=== PATIENT | male | born 1960 | race Caucasian/White ===

== ENCOUNTER → 2017-09-08 | Outpatient (CLI) | payer OTHER ==
--- NOTE | 2017-09-08 08:56 | NUR ---
ARRIVED AMBULATORY. MADE SELF COMFORTABLE IN RECLINER. PICC LINE NOTED TO RIGHT UPPER ARM. DRESSING NOT COVERING STATLOCK, DRESSING HAD PEELED BACK TO EXPOSE INSERTION SITE. PT HAD USED MEDICAL TAPE AND RECOVERD INSERTION SITE WITH TEGADERM THAT HAD PEELED BACK AND TAPED IT ON 3 SIDES. DRESSING WAS REMOVED. PICC NOTED TO BE 4CM EXTERNAL. NO SIGN OF INFECTION NOTED. AREA CLEANED AND NEW DRESSING APPLIED PER HOSPITAL POLICY. PT EDUCATION ON PICC LINE CARE COMPLETED. DENIES QUESTIONS OR NEEDS AT DISCHARGE.
== END ==
LOC: M.INFUS 07:45
DX: M71.022 Abscess of bursa, left elbow (principal)

== ENCOUNTER → 2017-09-10 | Outpatient (CLI) | payer OTHER ==
[2017-09-10 08:21] LABS: ABSOLUTE EOSINOPHILS 0.1 thou/uL (0.0-0.7); ABSOLUTE LYMPHOCYTES 0.9 thou/uL (0.8-5.3); ABSOLUTE MONOCYTES 0.5 thou/uL (0.0-1.2); ABSOLUTE NEUTROPHILS 1.2 thou/uL (1.6-8.1); BASOPHILS 1.3 %; EOSINOPHILS 4.6 %; HEMATOCRIT 43.3 % (42.0-52.0); HEMOGLOBIN 14.9 gm/dL (14.0-18.0); LYMPHOCYTES 30.7 %; MCH 29.9 pg (26.0-34.0); MCHC 34.4 g/dL (28.0-37.0); MCV 86.9 fL (80.0-100.0); MPV 7.9 fl. (7.2-11.1); NUCLEATED RBCS 0 /100WBC; PLATELET COUNT* 229 thou/uL (150-400); POLYS 44.4 %; RBC 4.98 mil/uL (4.50-6.00); RDW-CV 13.6 % (10.5-14.5); WBC 2.8 thou/uL (4.0-11.0)
[2017-09-10 08:35] LABS: ALBUMIN 3.5 g/dL (3.4-5.0); CALCIUM 8.9 mg/dL (8.5-10.1); CREATININE 0.9 mg/dL (0.6-1.3); POTASSIUM 4.3 mmol/L (3.5-5.1); TOTAL BILIRUBIN 0.8 mg/dL (<0.1-1.0); TOTAL PROTEIN 6.8 g/dL (6.4-8.2)
--- NOTE | 2017-09-10 08:40 | NUR ---
ARRIVED AMBULATORY. DRESSING PEELING UP AT TOP CORNER. PICC DRESSING CHANGED. PICC PATNET WITH GOOD BLOOD RETURN AND EASY FLUSH. WEEKLY LABS DRAWN PER ORDER. LINE FLUSHED. DENEIS NEEDS OR QUESTIONS AT DISCHARGE.
[2017-09-10 10:08] LABS: ESR (SEDRATE) 0 mm/hr (0-20)
== END ==
LOC: M.INFUS 01:13
DX: M71.022 Abscess of bursa, left elbow (principal)

== ENCOUNTER → 2017-09-17 | Outpatient (CLI) | payer OTHER ==
[2017-09-17 08:31] LABS: ABSOLUTE EOSINOPHILS 0.1 thou/uL (0.0-0.7); ABSOLUTE LYMPHOCYTES 0.7 thou/uL (0.8-5.3); ABSOLUTE MONOCYTES 0.5 thou/uL (0.0-1.2); ABSOLUTE NEUTROPHILS 1.9 thou/uL (1.6-8.1); EOSINOPHILS 3.9 %; HEMATOCRIT 43.9 % (42.0-52.0); HEMOGLOBIN 15.2 gm/dL (14.0-18.0); LYMPHOCYTES 22.6 %; MCH 29.9 pg (26.0-34.0); MCHC 34.5 g/dL (28.0-37.0); MCV 86.7 fL (80.0-100.0); MONOCYTES 14.8 %; MPV 8.3 fl. (7.2-11.1); NUCLEATED RBCS 0 /100WBC; PLATELET COUNT* 210 thou/uL (150-400); POLYS 57.7 %; RBC 5.07 mil/uL (4.50-6.00); RDW-CV 13.5 % (10.5-14.5); WBC 3.3 thou/uL (4.0-11.0)
[2017-09-17 08:54] LABS: ALBUMIN 3.6 g/dL (3.4-5.0); CREATININE 0.9 mg/dL (0.6-1.3); POTASSIUM 4.4 mmol/L (3.5-5.1); TOTAL BILIRUBIN 1.1 mg/dL (<0.1-1.0); TOTAL PROTEIN 6.6 g/dL (6.4-8.2)
--- NOTE | 2017-09-17 09:03 | NUR ---
ARRIVED AMBULATORY. MADE SELF COMFORTABLE IN RECLINER. SINGLE LUMAN PICC INTACT WITH DRESSING C/D/I. PICC DRESSING CHANGED AND WEEKLY LABS DRAWN PER STANDING ORDER. BRENDAN QUESTIONS OR NEEDS AT DISCHARGE.
[2017-09-17 09:26] LABS: ESR (SEDRATE) 3 mm/hr (0-20)
== END ==
LOC: M.INFUS 01:32
DX: M71.022 Abscess of bursa, left elbow (principal); R79.89 Other specified abnormal findings of blood chemistry

== ENCOUNTER → 2017-09-24 | Outpatient (CLI) | payer OTHER ==
[2017-09-24 09:05] LABS: ABSOLUTE EOSINOPHILS 0.2 thou/uL (0.0-0.7); ABSOLUTE LYMPHOCYTES 0.9 thou/uL (0.8-5.3); ABSOLUTE MONOCYTES 0.5 thou/uL (0.0-1.2); ABSOLUTE NEUTROPHILS 2.1 thou/uL (1.6-8.1); EOSINOPHILS 4.3 %; HEMATOCRIT 44.2 % (42.0-52.0); LYMPHOCYTES 23.7 %; MCH 29.5 pg (26.0-34.0); MCHC 33.9 g/dL (28.0-37.0); MCV 87.1 fL (80.0-100.0); MONOCYTES 13.9 %; MPV 8.1 fl. (7.2-11.1); NUCLEATED RBCS 0 /100WBC; PLATELET COUNT* 204 thou/uL (150-400); POLYS 57.1 %; RBC 5.07 mil/uL (4.50-6.00); RDW-CV 13.6 % (10.5-14.5); WBC 3.6 thou/uL (4.0-11.0)
--- NOTE | 2017-09-24 09:16 | NUR ---
ARRIVED AMBULATORY. MADE SELF COMFORTABLE. PICC INTACT WITH DRESSING C/D/I. PICC DRESSING CHANGED PER PROTOCOL. WEEKLY LABS DRAWN FROM PICC. PICC THEN PFLUSHED WITH 20ML NACL. DENIES QUESTIONS OR NEEDS AT DISCHARGE.
[2017-09-24 09:19] LABS: ALBUMIN 3.6 g/dL (3.4-5.0); CALCIUM 9.1 mg/dL (8.5-10.1); CREATININE 0.9 mg/dL (0.6-1.3); POTASSIUM 4.4 mmol/L (3.5-5.1); TOTAL BILIRUBIN 1.1 mg/dL (<0.1-1.0); TOTAL PROTEIN 6.8 g/dL (6.4-8.2)
[2017-09-24 10:38] LABS: ESR (SEDRATE) 3 mm/hr (0-20)
== END ==
LOC: M.INFUS 08:29
DX: M71.022 Abscess of bursa, left elbow (principal); R79.89 Other specified abnormal findings of blood chemistry

== ENCOUNTER → 2017-10-01 | Outpatient (CLI) | payer OTHER ==
[2017-10-01 10:00] LABS: ABSOLUTE EOSINOPHILS 0.2 thou/uL (0.0-0.7); ABSOLUTE LYMPHOCYTES 0.9 thou/uL (0.8-5.3); ABSOLUTE MONOCYTES 0.5 thou/uL (0.0-1.2); ABSOLUTE NEUTROPHILS 2.1 thou/uL (1.6-8.1); BASOPHILS 1.1 %; EOSINOPHILS 4.9 %; HEMATOCRIT 43.3 % (42.0-52.0); HEMOGLOBIN 14.5 gm/dL (14.0-18.0); LYMPHOCYTES 24.2 %; MCH 29.7 pg (26.0-34.0); MCHC 33.4 g/dL (28.0-37.0); MCV 88.9 fL (80.0-100.0); MONOCYTES 13.3 %; MPV 8.3 fl. (7.2-11.1); NUCLEATED RBCS 0 /100WBC; PLATELET COUNT* 189 thou/uL (150-400); POLYS 56.5 %; RBC 4.87 mil/uL (4.50-6.00); RDW-CV 13.6 % (10.5-14.5); WBC 3.8 thou/uL (4.0-11.0)
[2017-10-01 10:09] LABS: ALBUMIN 3.6 g/dL (3.4-5.0); CALCIUM 8.8 mg/dL (8.5-10.1); POTASSIUM 4.4 mmol/L (3.5-5.1); TOTAL PROTEIN 6.5 g/dL (6.4-8.2)
[2017-10-01 11:00] LABS: ESR (SEDRATE) 9 mm/hr (0-20)
== END ==
LOC: M.INFUS 03:11
DX: M71.022 Abscess of bursa, left elbow (principal)